=== PATIENT | female | born 1945 | race Caucasian/White ===

== ENCOUNTER → 2025-03-05 | Emergency (ER) | payer MEDICARE ==
[~2025-03-05] VITALS: Ht 170.2 cm; Wt 68.2 kg
--- NOTE | 2025-03-05 10:20 | Physician Documentation ---
History of Present Illness ~ Chief Complaint: Rash Stated Complaint: RASH Time Seen by MD: 09:46 HPI 9-year-old female presents to the ED with one week of all over body rash. States she has had COVID twice this year and indicates that she thinks she may have measles. Says she feels fine otherwise. This is though her symptoms are subsiding. Her primary complaint is that she has a rash in her face and face feels swollen. Medication Reconciliation Allergies: Coded Allergies: levofloxacin (Unverified Allergy, Unknown, 03/05/25) Physical Exam Vital Signs: Temperature: 98.0, Source: Axillary, Heart Rate: 97, Respiratory Rate: 16, BP: 183/107, Pulse Oximetry: 95, Weight: 68.180 Oxygen Flow Rate: 0 Physical Exam General: Alert, no apparent distress. HEENT: PERRL, EOMI, no injection, moist mucous membranes. facial rash, no conjunctivits Respiratory: Lungs clear, no respiratory distress. Neurologic: Oriented x4. Psychiatric: Normal mood and affect. Skin: allover body rash Progress Results/Orders Results/Orders Orders - GERALD GREENE [employer] Covid19 Binax Poc Result Entry (03/05/25 10:20) Vital Signs 03/05/25 09:36 Temp 98.0 Pulse 97 Resp 16 B/P (MAP) 183/107 Pulse Ox 95 O2 Flow Rate 0 Medical Decision Making Findings This case was run by the Infectious Disease specialist Dr. Tomas who was on- call. This case met criteria for nasal testing and did not fit the clinical picture. Or at this time I am going to advise the patient this may have been an allergic reaction she did not have any kopliickspots in her exam. Gave her shot of Kenalog to help with the rash and itching. Differential Dx:Considerations: Include: Abscess, AIDS/HIV, Anthrax (cutaneous), Atopic dermatitis, Candidiasis, Contact dermatitis, Drug reaction, Erythema multiforme, Erysipelas, Gangrene, Herpes zoster, Herpes simplex, Hidradenitis suppurativa, Impetigo, Intertrigo, Lymes disease, Molluscum contagiosum, Osteomyelitis, Pediculosis, Pityriasis rosea, Psoriaisis, RMSF, Rosacea, Scabies, Scarlet fever, Tinea, Urticaria, Varicella, Viral exanthema, Other Departure Disposition: HOME / SELF CARE / HOMELESS Impression: Primary Impression: Allergic contact dermatitis Condition: Stable Discharge Instructions: Pruritus, Contact Dermatitis Additional Instructions: Your case was reviewed by the Infectious Disease specialist and they indicated that you likely do not have measles gave you a steroid shot to help with rash and itching. Your symptoms worsen police feel free to return to the ED Referrals: NO PRIMARY CARE PROVIDER (PCP) Signature Scribe Signature: rf Attestation: Scribed for Gerald Greene [employer] by Gerald Samano NP . 03/05/25 11:17 GERALD GREENE NP Mar 05, 2025 10:20
[2025-03-05] MEDS: triamcinolone acetonide 40mg/ml inj IM ONE (11:33)
[2025-03-05 12:02] VITALS: BP 174/102; PULSE 102; RESP 16; TEMP 98; O2SAT 99
== END | disposition home or self-care (01) ==
LOC: ER 09:33
DX: L23.9 Allergic contact dermatitis, unspecified cause (principal); Z88.1 Allergy status to other antibiotic agents
CPT/HCPCS: 96372; 99283; J3301